=== PATIENT | male | born 1960 | race Caucasian/White ===

== ENCOUNTER 2021-09-23 00:34 | Emergency (ER) | payer OTHER, SELFPAY ==
--- NOTE | ~2021-09-23 | CT_ITS ---
EXAMINATION: CT abdomen pelvis wo con DATE: 09/23/2021 01:53 INDICATION: Right flank pain. TECHNIQUE: Computed tomography (CT) of the abdomen and pelvis was performed without intravenous contr ast. Automated exposure control and iterative reconstruction technique were employed. The dose-length product was 856.26 mGy-cm. COMPARISON: CT abdomen 12/15/2010 FINDINGS: The visualized portions of the lung bases demonstrate mild atelectasis. No pleural effusion . The heart size is normal. No pericardial effusion. The liver, gallbladder, spleen, pancreas, adrena l glands, and left kidney are normal. There is mild right hydronephrosis and hydroureter. There is a 4 mm stone in distal right ureter. There is a left inguinal hernia containing fat. There are no dilat ed loops of bowel. There are changes of appendectomy. There is diverticulosis of the colon without ev idence of diverticulitis. There are no pathologically enlarged lymph nodes. There is no free intraper itoneal fluid. There is mild thoracolumbar spondylosis. IMPRESSION: 1. 4 mm stone in distal right ureter with mild right hydronephrosis and hydroureter. 2. Left inguinal hernia containing fat. Reviewed, dictated and finalized at location A. IMPRESSION: 1. 4 mm stone in distal right ureter with mild right hydronephrosis and hydrour eter. 2. Left inguinal hernia containing fat.
[2021-09-23 00:35] VITALS: BP 161/85; PULSE 53; RESP 17; TEMP 36.8; O2SAT 97
--- NOTE | 2021-09-23 01:18 | ED.ABDPAIN ---
HPI - Abdominal Pain General Chief Complaint: Abdominal Pain Stated Complaint: right side pain Time Seen by Provider: 09/23/21 01:09 History of Present Illness HPI narrative: 61-year-old male presenting the emergency department for evaluation of right flank pain. Patient states about a week and a half ago he had 1 hour of brief pain that resolved. Patient dates about 3 days ago he had recurrence of the pain and it lasted a little longer. Patient states tonight he has had persistent right flank pain since about 9:30 PM. Patient does report associated nausea with it patient states he does also have increased urinary urgency. Patient denies any prior history of kidney stones. Patient describes the pain as sharp and is not affected by movement. Related Data Home Medications Medication Instructions Recorded Confirmed hydrochlorothiazide 12.5 mg tablet mg 09/23/21 levothyroxine 75 mcg tablet mcg 09/23/21 metoprolol succinate 100 mg mg PO 09/23/21 tablet,extended release 24 hr rosuvastatin 20 mg tablet mg 09/23/21 Allergies Allergy/AdvReac Type Severity Reaction Status Date / Time No Known Allergies Allergy Mild Verified 09/23/21 00:39 Review of Systems Review of Systems: CONSTITUTIONAL: Denies fever, chills, or sweats. EYES: Denies visual changes, redness, or discharge. ENT: Denies rhinorrhea, congestion, sore throat, or otalgia. CARDIOVASCULAR: Denies chest pain, palpitations, or edema. RESPIRATORY: Denies cough or dyspnea. GASTROINTESTINAL: Denies abdominal pain, nausea, vomiting, or diarrhea. GENITOURINARY: See HPI SKIN: Denies rash or itching. MUSCULOSKELETAL: Denies back pain, joint pain, or myalgia. NEUROLOGIC: Denies headache, numbness, or weakness. [facility] Family History Family History (Updated 11/09/11 @ 08:43 by DOCTOR UNKNOWN) Other Family history of lung cancer Family history of malignant neoplasm Social History Social History Smoking status: Never smoker Alcohol intake: never Exam Narrative: APPEARANCE: Well appearing, no pain, no distress, well-nourished. HEAD: normocephalic, atraumatic. EYES: PERRLA/EOMI, conjunctivae clear. NOSE: Normal no drainage NECK: Supple. No adenopathy, no masses. RESPIRATORY: Airway patent, respirations nonlabored. Clear to auscultation bilaterally, no rales, rhonchi, wheezing. CARDIOVASCULAR: Regular rate and rhythm without murmurs rubs or gallops. ABDOMINAL: Soft, nontender, nondistended, normal bowel sounds MUSCULOSKELETAL: Moves all extremities. Strength/ROM intact, No edema, No calf tenderness. NEURO: Alert. Cranial nerves II through XII intact. SKIN: Warm, dry. Normal Color Course Course Emergency Course: Patient's pain was improved with treatment. Patient was updated on the results of his CT showing a 5 mm distal right ureteral stone located at the UVJ with proximal right hydronephrosis. Patient's UA does not show evidence of urinary tract infection. Patient will be discharged with Seeley and Flomax with Zofran for nausea control. Patient will be provided follow-up with urology. All questions concerns were addressed. Patient was comfortable with the plan with discharge and follow-up. Vital Signs Vital signs: Vital Signs Temperature 98.3 F 09/23/21 00:35 Pulse Rate 53 L 09/23/21 00:35 Respiratory Rate 17 09/23/21 00:35 Blood Pressure 161/85 H 09/23/21 00:35 Pulse Oximetry 97 09/23/21 00:35 Oxygen Delivery Room Air 09/23/21 00:35 Temperature 98.3 F 09/23/21 00:35 Pulse Rate 53 L 09/23/21 00:35 Respiratory Rate 17 09/23/21 00:35 Blood Pressure 125/77 09/23/21 04:02 Pulse Oximetry 96 09/23/21 04:02 Oxygen Delivery Room Air 09/23/21 00:35 MDM - Abdominal Pain Lab Data Attestation: I reviewed the patient's lab results. Result diagrams: 09/23/21 01:39 09/23/21 02:02 Labs: Lab Results 09/23/21 09/23/21 09/23/21 Range/Units 01:39 02:02 02:26 WBC 5.7
[2021-09-23] MEDS: HYDROmorphone HCL INJ (*CRX) 1 MG/ML SYR IV PUSH (01:27)
[2021-09-23] MEDS: ONDANSETRON INJ 4 MG/2 ML VIAL IV PUSH (01:28)
[2021-09-23] MEDS: SODIUM CHLORIDE 0.9% IV 1,000 ML 999 ML IV CONT (01:37)
[2021-09-23 01:45] LABS: Basophils Percent Auto 0.7 % (0.2-1.2); Eosinophils Absolute Auto 0.1 K/mm3 (0-0.3); Eosinophils Percent Auto 1.6 % (0-4.4); Hematocrit 41.7 % (42.0-52.0); Hemoglobin 14.3 g/dL (14.0-18.0); Immature Granulocyte Absolute 0.02 K/mm3 (0.00-0.031); Immature Granulocyte Percent A 0.4 % (0-0.5); Lymphocytes Absolute Auto 1.41 K/mm3 (0.9-3.2); Lymphocytes Percent Auto 24.8 % (18.3-44.2); Mean Corpuscular HGB Conc 34.3 g/dl (32-36); Mean Corpuscular Hemoglobin 31.2 pg (26-34); Mean Platelet Volume 9.5 fl (7.4-10.4); Monocytes Absolute Auto 0.9 K/mm3 (0.1-0.6); Neutrophils Absolute Auto 3.3 K/mm3 (1.3-6.7); Neutrophils Percent Auto 57.5 % (45.5-73.1); Platelet Count Result 146 k/mm3 (150-375); Red Blood Count 4.58 M/mm3 (4.6-6.20); Red Cell Distribution Width 12.6 % (11.5-14.5); White Blood Count 5.7 K/mm3 (4.5-10.0)
[2021-09-23 02:33] LABS: Add Urine Microscopic? YES; Appearance Urine Clear (Clear); Bilirubin Urine Negative (Negative); Blood Urine 2+ (Negative); Color Urine Yellow (Yellow); Glucose Urine UA Negative (Negative); Ketones Urine Negative (Negative); Leukocyte Esterase Ur Negative LEU/UL (Negative); Nitrate Urine Negative (Negative); Protein Urine Negative (Negative); Urobilinogen Urine 0.2 mg/dL (<2.0)
[2021-09-23 02:36] LABS: Mucus Urine Rare /lpf; RBC Urine 21-50 /hpf (0-2); Squamous Epithelial Cell Urine Rare /hpf (Few); WBC Urine 0-3 /hpf
[2021-09-23 02:42] LABS: Alanine Aminotransferase 18 U/L (6-50); Albumin Level 3.9 g/dL (3.5-5.1); Alkaline Phosphatase 76 U/L (38-126); Anion Gap 7 mmol/L (8-16); Aspartate Amino Transferase 38 U/L (17-59); Bilirubin,Total 0.3 mg/dL (0.2-1.3); Blood Urea Nitrogen 25 mg/dL (9-20); Carbon Dioxide 28 mmol/L (22-30); Chloride 103 mmol/L (98-107); Estimated CRCL calculation 62 ml/min; Estimated Glomerular Filt Rate 57; Glucose 103 mg/dL (65-110); Sodium 138 mmol/L (137-145)
[2021-09-23 03:54] VITALS: O2SAT 96
[2021-09-23 04:00] VITALS: O2SAT 97
[2021-09-23 04:02] VITALS: BP 125/77; O2SAT 96
[2021-09-23] MEDS: HYDROcodone/acetaminophen (*CRX) 5-325 MG TABLET 1 TAB PO (05:24)
[2021-09-23] MEDS: TAMSULOSIN HCL 0.4 MG CAPSULE PO (05:25)
[2021-09-23 05:34] VITALS: BP 120/74; PULSE 52; RESP 18; O2SAT 98
== END 2021-09-23 05:35 | disposition home or self-care (01) ==
PROVIDERS: Emergency Provider Emergency Medicine; PCP Internal Medicine
DX: N13.2 Hydronephrosis with renal and ureteral calculous obstruction (principal)
CPT/HCPCS: 36415; 74176; 80053; 81001; 85025; 96361; 96374; 96375; 99284; A9270; J1170; J2405; J7030

== ENCOUNTER 2024-01-04 23:49 | Emergency (ER) | payer OTHER, SELFPAY ==
--- NOTE | 2024-01-05 00:09 | ED.EAR ---
HPI - Ear Problem General Chief complaint: Ear Stated complaint: right ear bleeding for 6-7 hours, hearing loss Time Seen by Provider: 01/04/24 23:57 History of Present Illness HPI Narrative: 63-year-old male presents emergency department for right ear pain and hearing loss. Patient states earlier this morning he used a Q-tip in his ear and is concerned he injured his ear. States since then he has had decreased hearing and blood trickling out of his ear. He is not anticoagulated. Denies significant pain or fever. Related Data Home Medications Medication Instructions Recorded Confirmed hydrochlorothiazide 12.5 mg tablet mg 09/23/21 levothyroxine 75 mcg tablet mcg 09/23/21 metoprolol succinate 100 mg mg PO 09/23/21 tablet,extended release 24 hr rosuvastatin 20 mg tablet mg 09/23/21 Allergies Allergy/AdvReac Type Severity Reaction Status Date / Time No Known Allergies Allergy Mild Verified 01/05/24 00:14 Review of Systems Review of Systems: All systems reviewed & are unremarkable except as noted in HPI and below PMFSH Family History Family History Other Family history of lung cancer Family history of malignant neoplasm Social History Social History Smoking status: Never smoker Alcohol intake: never Exam Narrative: GENERAL: Well-appearing, well-nourished, and in no acute distress. HEAD: Normocephalic, atraumatic. EYES: PERRLA and EOMI. ENT: Nares clear, no rhinorrhea or epistaxis. Mucous membranes moist. Right TM perforated with small amount of blood in the canal. No purulence, no erythema to TM, no bulging. No pain with movement of pinna. No mastoid tenderness. NECK: Supple. CHEST: Clear to auscultation. No respiratory distress. HEART: Regular rate and rhythm. No murmur heard. Normal peripheral pulses. EXTREMITIES: Normal range of motion. No edema. SKIN: Warm, dry, no rash. NEURO: No focal deficits. Alert and oriented x3 Medical Decision Making MDM Narrative Medical decision making narrative: 63-year-old male presents emergency department for decreased hearing and pain to the right ear after using a Q-tip earlier this morning. Vitals are stable. Exam is significant for perforated right TM mild amount of blood in the canal. No pain with movement pinna. No mastoid tenderness. No purulence. Patient will be started on ofloxacin otic drops and advised to follow-up with ENT. Strict ED return precautions discussed. He is agreeable to plan verbalized understanding. Discharged in stable condition. Discharge Plan Discharge Clinical Impression: Perforation of tympanic membrane Qualifiers: Laterality: right Qualified Code(s): H72.91 - Unspecified perforation of tympanic membrane, right ear Patient Disposition: Home, Self-Care Condition: Stable Instructions: Antibiotic Form, Ruptured Eardrum (ED) Additional Instructions: You were evaluated in the emergency department for decreased hearing and pain to your ear after using a Q-tip. There is blood in her ear canal and it looks like your ear drum has been perforated from the Q-tip. Please refrain from sticking objects in her ears. Please use the drops as directed follow-up with ENT. Return to the emergency department if you develop worsening pain, fever, increased or prolonged bleeding or other concerning symptoms. Prescriptions: New ofloxacin 0.3 % drops 10 drp RIGHT EAR DAILY 7 Days Qty: 5 0RF No Action metoprolol succinate 100 mg tablet extended release 24 hr PO levothyroxine 75 mcg tablet rosuvastatin 20 mg tablet hydrochlorothiazide 12.5 mg tablet tamsulosin [Flomax] 0.4 mg capsule 0.4 mg PO DAILY Qty: 10 0RF hydrocodone-acetaminophen 5-325 mg tablet 1 tablet PO Q8H PRN (Reason: pain) Qty: 14 0RF ondansetron 4 mg tablet,disintegrating 4 mg PO Q6H PRN (Reason: nausea and vomiting) Qty: 14 0RF Follow-up/Referrals: Michael Muniz MD [Physician] - 1 Day UNKNOWN,DOCTOR [Primary Care Provider] -
[2024-01-05 00:11] VITALS: BP 144/93; PULSE 52; RESP 15; TEMP 36.6; O2SAT 98
== END 2024-01-05 00:28 | disposition home or self-care (01) ==
LOC: ANHED 01-05 00:22
PROVIDERS: Emergency Provider Physician Assistant
DX: H72.91 Unspecified perforation of tympanic membrane, right ear (principal)
CPT/HCPCS: 99283

== ENCOUNTER 2024-07-17 13:59 | Outpatient (CLI) | payer OTHER, SELFPAY ==
--- NOTE | 2024-07-17 | ECHO_ITS ---
Patient Info Name: Jose Pryor Age: 64 years : 1960 Gender: Male Ht: 69 in Wt: 225 lbs BSA: 2.26 m2 HR: 52 bpm BP: 167 / 108 mmHg Heart Rhythm: Sinus Rhythm Technical Quality: Fair Exam Date: 07/17/2024 3:04 PM Patient Status: O Admit Date: 07/17/2024 Exam Type: CA echo doppler color flow Complete two-dimensional, color flow and Doppler transthoracic echocardiogram is performed. [employer] Well[employer] Director: Tori Dotson Attending Provider: Kurtis Grajeda Summary 1. Complete two-dimensional, color flow and Doppler transthoracic echocardiogram is performed. 2. Left ventricular chamber dimension is normal. 3. Left ventricular systolic function is normal, estimated at 65-70. 4. The left ventricular diastolic function is grade I diastolic dysfunction. 5. E/e' 8 is minimally elevated. 6. Left atrial chamber dimension is moderately enlarged. 7. No pulmonary hypertension, estimated pulmonary arterial systolic pressure is 18 mmHg. Left Ventricle E/e' 8 is minimally elevated. Left ventricular chamber dimension is normal. Left ventricular systolic function is normal, estimated at 65-70. The left ventricular diastolic function is grade I diastolic dysfunction. Right Ventricle Right ventricular chamber dimension is normal. Right ventricular systolic function is normal and with normal TAPSE 2.6 cm. Left Atria Left atrial chamber dimension is moderately enlarged. Right Atria Right atrial chamber dimension is normal. Aortic Valve The aortic valve is trileaflet. There is no aortic valve stenosis. There is no aortic valve regurgitation. Pulmonic Valve There is no pulmonic regurgitation. Mitral Valve There is no mitral valve stenosis. There is no mitral valve regurgitation. Tricuspid Valve There is no tricuspid valve regurgitation. No pulmonary hypertension, estimated pulmonary arterial systolic pressure is 18 mmHg. Pericardium/Pleural There is no pericardial effusion. Inferior Vena Cava Normal inferior vena cava with >50% collapse upon inspiration consistent with normal right atrial pressure, 5 mmHg. Aorta The aortic root size at the sinus of Valsalva is normal. Left Ventricular Outflow Tract Name Value Normal LVOT 2D LVOT Diameter 2.0 cm LVOT Doppler LVOT Peak Velocity 118 cm/s LVOT Peak Gradient 6 mmHg LVOT Mean Gradient 3 mmHg LVOT VTI 26 cm LVOT VTI/AV VTI Ratio 0.8 LVOT Stroke Volume 85 ml LVOT CO 4.1 l/min LVOT CI 1.8 l/min/m2 Pulmonic Valve Name Value Normal RVOT Doppler RVOT Peak Velocity 63 cm/s RVOT Peak Gradient 2 mmHg PV Doppler PV Peak Velocity 162 cm/s PV Peak Gradient 10 mmHg Mitral Valve Name Value Normal MV Diastolic Function MV E Peak Velocity 55 cm/s MV A Peak Velocity 61 cm/s MV E/A 0.9 MV Decel Time (PW) 216 ms MV Annular TDI MV E/e' (Septal) 10.2 MV E/e' (Lateral) 7.0 MV E/e' (Average) 8.6 Tricuspid Valve Name Value Normal TV Regurgitation Doppler TR Peak Velocity 177 cm/s TR Peak Gradient 13 mmHg Estimated PAP/RSVP RA Pressure 5 mmHg <=5 PA Systolic Pressure 18 mmHg <36 RV Systolic Pressure 18 mmHg <36 TV Annular TDI TV Lateral Nikki s' Velocity 14.2 cm/s >=9.5 Aorta Name Value Normal Ascending Aorta Ao Root Diameter (MM) 3.6 cm Ao Root Diam Index (MM) 1.6 cm/m2 Aortic Valve Name Value Normal AV Doppler AV Peak Velocity 153 cm/s AV Peak Gradient 9 mmHg AV Mean Gradient 5 mmHg AV VTI 33 cm AV Area (Cont Eq VTI) 2.6 cm2 >=3.0 AV Area (Cont Eq Jay) 2.5 cm2 AV DI (Jay) 0.77 AV Regurgitation 2D LVOT Area 3.3 cm2 Ventricles Name Value Normal LV Dimensions 2D/MM IVS Diastolic Thickness (2D) 1.6 cm 0.6-1.0 LVID Diastole (2D) 4.5 cm 4.2-5.8 LVIW Diastolic Thickness (2D) 1.3 cm 0.6-1.0 LVID Systole (2D) 3.0 cm 2.5-4.0 LVOT Diameter 2.0 cm LV Mass (2D Cubed) 264.12 g 88.00-224.00 LV Mass Index (2D Cubed) 117 g/m2 49-115 Relative Wall Thickness (2D) 0.60 <=0.42 LV Fractional Shortening/Ejection Fraction 2D/MM LV Fractional Shortening (2D) 33 % 25-43 LV EF (2D Teichholz) 62 % LV Diastolic Volume (4C MOD) 74 ml LV EF (4C MOD) 72 % LV Diastolic Volume (2C MOD) 65 ml LV EF (2C MOD) 71 % LV Diastolic Volume (BP MOD) 68 ml 62-150 LV Diastolic Volume Index (BP MOD) 30 ml/m2 34-74 LV Systolic Volume (BP MOD) 20 ml 21-61 LV Systolic Volume Index (BP MOD) 9 ml/m2 11-31 LV EF (BP MOD) 70 % 52-72 LV Diastolic Length (4C) 8.3 cm LV Systolic Length (4C) 7.3 cm LV Stroke Volume (4C MOD) 53 ml Atria Name Value Normal LA Dimensions LA Dimension (MM) 5.0 cm 3.0-4.0 LA Volume (4C A-L) 89 ml LA Volume (BP A-L) 89 ml RA Dimensions RA Systolic Major [place] Length (4C) 4.7 cm 2.1-2.7 RA Area (4C) 14.3 cm2 <=18.0 Report Signatures
--- OUTSIDE RECORDS SUMMARY | 2024-07-17 14:21 | XMS_ITS | Continuity of Care Document ---
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 Name Role Phone Fabricio Galindo MD Unavailable Unavailable Allergies, Adverse Reactions, Alerts Substance Reaction Status Criticality No Known Allergies Active No Inform ation Medications Medication Instructions Dosage Effective Dates (start - stop) Status Comments Synthroid 75 mcg tablet take 1 tablet by oral route every day 75 MCG - Active hydrochlorothiazide 12.5 mg tablet take 1 tablet by oral route every day 12.5 MG - Active Crestor 20 mg tablet take 1 tablet by oral route every day 20 MG - Active Toprol XL 100 mg tablet,extended release take 1 tablet by oral route every day 100 MG - Active Procedures Procedure Date OFFICE/OUTPATIENT VISIT, EST OFFICE/OUTPATIENT VISIT, EST PREV VISIT, EST, AGE 40-64 OFFICE/OUTPATIENT VISIT, EST PREV VISIT, NEW, AGE 40-64 Advance Directives Directive Yes / No Effective Date File Name No Information Encounters Encounter Description Practice Location Reason(s) For Visit Diagnoses Date Provider Providers Copied on Encounter OFFICE/OUTPA TIENT VISIT, EST [facility], [address] [place], [place], [id number], tel:[phone] [facility] leg pain1 (chief complaint) Nontraumatic hematoma of soft tissueHypothyroidis m Sep-2 9 Mate[address]. [address] [place], [place], [id number] , [place]. tel:[phone] Referring Provider: Avis Aguero [address], [place], [place], [id number]. tel:[phone] OFFICE/OUTPA TIENT VISIT, EST [facility], [address], [place], [place], [address], [place] [phone] [facility] HLP (chief complaint) thyroid1 (chief complaint) HTN (chief complaint) BPH1 (chief complaint) HyperlipidemiaHypot hyroidismEssential (primary) hypertensionBPH w/ lower urinary tract symptom 9 Mate[address] Reg[address]. [address], [address], [place], [place], [address] , [place]. tel:[phone] Referring Provider: Avis Aguero [address], [place], [place], [id number]. tel:[phone] PREV VISIT, EST, AGE 40-64 [facility], [address], [place], [place], [address], [place] [phone] [facility] PHysical (chief complaint) Encounter for general adult medical exam w abnormal findingsHyperlipide miaHypothyroidismEs sential (primary) hypertensionBPH w/ lower urinary tract symptom 9 Mate[address] Regalado. [address], [address], [place], [place], [address] , [place]. tel:[phone] Referring Provider: Avis Aguero [address], [place], [place], [address]. tel:[phone] PREV VISIT, NEW, AGE 40-64 [facility], [address], [place], [place], [address], [place] [phone] [facility] Physical (chief complaint) Encntr for general adult medical exam w/o abnormal findings 8 Mate[address] Regalado. [address], [place], [place], [address] , [place]. [phone] Referring Provider: Avis Aguero [address], [place], [place], [address]. tel:[phone] Family History Family Member Type Diagnosis Age At Onset Father Problem (finding) Hypertension Father Problem (finding) Alive and well Mother Problem (finding) lung CA (Cause Of ) 73 Payers Payer name Insurance type Covered constitution party ID Authoriza tion(s) No Information Social History Type Description Quantity Date Captured Comments Alcohol Use Details Caffeine Use Details Unknown Tobacco Use Status Ex-cigarette smoker 019 Smoking Status Former smoker Smoking Tobacco Use Details Cigarette: Age Started: 24, Age Stopped: 27, Years Used 3 Cigarette: 1 Packs per day, Pack Year: 3 Sex Male Vital Signs Date / Time: Height Weight BMI Pulse Rate Blood Pressure Temperature Respiratory Rate Body Surface Area Head Circumference BMI percentile Pulse Ox Inhaled Ox 5:51 PM 69.00 in 220.20 lbs 32.5 2 kg/m eter (2) 80 /min 122/78 mm[Hg] 98.5 F 18 /min Chief Complaint And Reason For Visit From encounter dated '11/07/2018 17:00'. leg pain1 (chief complaint). Description: Pt was renovating his deck and part of deck fell on his right lateral inferior knee and scratched the anterior part of his right lower leg 2 days ago. Pt notices bruising right anterior lateral lower extremity with mild swelling. Pt denies any redness or warmth Pt denies any calf pain, pt denies any sob or chest pain, Pt denies any recent travel or bedrest. Pt is concerned about DVT. Pt denies any bleeding. His last Tdap was over 10 years ago Plan Of Treatment Date Type Action Status Goal Tobacco cessation counseling completed Goal Special diet education compl eted Goal Special diet education compl eted Goal Special diet education compl eted Goal Tobacco cessation counseling completed Goal Special diet education compl eted Referral Ordered: US THYROID ordered Referral Ordered: SHANNON MYLES -[facility] : Surgery (related to Encntr for general adult medical exam w/o abnormal findings) ordered Referral Ordered: COLONOSCOPY AND BIOPSY ordered Referral Referred To: SHANNON MYLES [address] [place], [place], [phone] Ordered: Referrals: [facility] : Surgery. SHANNON MYLES. Evaluate and treat ordered History Of Present Illness Encounter Date Complaint History Of Prese nt Illness leg pain1 Pt was renovatin g his deck and part of deck fell on his right lateral inferior knee and scratched the anterior part of his right lower leg 2 days ago. Pt notices bruising right anterior lateral lower extremity with mild swelling. Pt denies any redness or warmth Pt denies any calf pain, pt denies any sob or chest pain, Pt denies any recent travel or bedrest. Pt is concerned about DVT. Pt denies any bleeding. His last Tdap was over 10 years ago BPH1 Patient has sign s of BPH. Patient has intermittent urinary deep difficulty. Patient denies any urgency or dysuria. The patient has not made appointment with urology yet. HTN Patient takes To prol and hydrochlorothiazide. His blood pressure is stable. Patient denies any chest pain or headache. thyroid1 Patient takes 75 mcg Synthroid. Patient denies any chest pain or headache. His TSH is slightly elevated. HLP Patient has hype rlipidemia. Patient supposed to take Crestor daily but he has not been taking them daily. Patient has been out of Crestor for a while. His total cholesterol and triglyceride are both elevated. PHysical Patient needs an nual physical. Patient has high cholesterol and high triglyceride. Patient take Zocor daily. His total cholesterol and triglycerides are both high. Patient is not on any diet. Patient has low thyroid. The patient has mildly elevated thyroglobulin and also low thyroid. Patient states that he is only taking 56 mcg of Synthroid instead of 112 mcg. Patient breaks 112 mcg to half and takes only 56 mcg daily. Patient states that he has history of over replaced thyroid which caused him to have palpitations. Patient is afraid of the thyroid so that is why he is only taking half of the dosage. Patient does feel fatigued with some weight gain. Patient also has hypertension. Patient takes hydrochlorothiazide and Toprol and his blood pressure stable. Patient denies any other complaints. Physical Pt needs annual physical. Pt has HLP and HTn Pt takes zocor and metoprolol. He also has low thyroid. Pt takes synthroid but not sure the dosage Pt denies any chest pain or sob or headache Pt has been having issue with intercourse. Pt has been having issue for 6 months Pt states that whenever he engaged in intercourse, the foreskin and daniel penis becomes irritated near the junction point and causes pain and sometimes bleeding. . He also has some dribbling when he finished urination for 6 months Pt denies any dysuria, frequency, urgency, difficulty with urination, slow stream, etc. Pt denies any other complaints Instructions Date Instruction Additional Infor mation Special diet education Related t o Body mass index (BMI) 32.0-32.9, adult Weight management Related to Non traumatic hematoma of soft tissue Weight management Related to Hyp othyroidism Special diet education Related t o Body mass index (BMI) 32.0-32.9, adult Increase physical activity Relat ed to Hypothyroidism Special diet education Related t o Body mass index (BMI) 32.0-32.9, adult Special diet education Related t o Body mass index (BMI) 31.0-31.9, adult Increase activity. Related to En cntr for general adult medical exam w/o abnormal findings Assessments Type Assessment Date assessment Nontraumatic hematoma of soft ti ssue assessment Hypothyroidism Mental Status Date Cognitive Assessment Orientation - [place] ed to time, place, person, situation.
--- OUTSIDE RECORDS SUMMARY | 2024-07-17 14:21 | XMS_ITS | Data Portability ---
[facility] Address [address] [place] [address] Care Team Providers Care Storage Battery Tester Name Role Phone DEONNA GRAJEDA Primary Care Provider Assessment Encounter Date Assessment Date Assessment LastModified by Organization Details LastModified Time 11/01/2023 11/01/2023 he does not want to adjust medicines he has agreed to come in in a week or 2 to get his blood pressure checked blood work has been ordered old records have been requested he really does not want to do any medication for anxiety and depression he has been offered counseling and he wants to hold off on that no SI or HI number given for counselor referral I will see him back in 3 months [email or web address] Not available 11/01/2023 22:39:11 01/07/2024 01/07/2024 needs to see ENT [email or web address] Not available 01/23/2024 21:09:39 06/15/2024 06/15/2024 EKG shows a normal sinus rhythm I do not appreciate any acute changes maybe some T-wave flattening in lead 3. Chest x-ray CBC CMP lipid complete echo Lexiscan stress test PFTs he will follow up 6 weeks if he gets serious dyspnea on exertion that is worsening he will go to the hospital [email or web address] Not available 06/16/2024 20:19:24 Plan of Treatment Reminders Order Date Submit Date Provider Last Modified By Organization Details Last Modified Time Details Appointments ANY 15 2024 09:15A M Deonna Grajeda MD Not available Not available Not available Lab lipid panel, serum 2024 0501 025 [facility], [address], [place], [address], 06/30/2024 11:02:22 CMP, serum or plasma 2024 025 [facility], [address], [place], [address], 06/30/2024 11:02:22 CBC w/ auto diff 2024 025 [facility], [address], [place], [address], 06/30/2024 11:02:22 PSA, total, serum or plasma 2023 024 [email or web address] [facility], [address] [address], [place], [address], 12/15/2023 15:56:21 lipid panel, serum 2023 024 KATERINA [facility], [address] [address], [place], [address], 11/05/2023 09:21:08 CMP, serum or plasma 2023 024 [email or web address] [facility], [address] [address], [place], [address], 12/15/2023 15:56:21 CBC w/ auto diff 2023 024 [email or web address] [facility], [address] [address], [place], [address], 12/15/2023 15:56:21 Referral ENT surgery referral - 01/17/24 at 1030am at [address] pt aware 2023 024 [facility], [address], [place], [address], 03/07/2024 16:03:34 Procedures lexiscan cardiolit e stress test (PROC) [address] (Cardiology [facility] Emg), [address] [address], [place], [address], 07/17/2024 14:18:52 Surgeries None recorded. Imaging electroca rdiogram 2024 025 [email or web address] In-Office Order, Internal Use Only DO Not Attach Compendium DO Not Attach Compendium, Do Not Delete/merge, [id number] 06/15/2024 17:37:53 XR, chest 2024 025 [facility] (Imaging), [address] [place] [address], [phone], 07/14/2024 11:24:09 PFT, complete 2024 [facility] (Resp Services), [address] [place] [address], [phone], 07/14/2024 11:24:09 US, echocardi ogram 2024 025 [facility] (Cardiology [facility]), [address] [place] [address], [phone], 07/14/2024 11:24:09 Medication Orders None recorded. Patient TargetsNo targets recorded. Patient Instructions Encounter Date Encounter Id Patient Instructions Last Modified By Organization Details Last Modified Time 11/01/2023 [id number] A healthy lifestyle: care instructions [email or web address] Not available 11/01/2023 17:23:48 01/07/2024 [id number] A healthy lifestyle: care instructions [email or web address] Not available 01/07/2024 12:52:24 06/15/2024 [id number] A healthy lifestyle: care instructions [email or web address] Not available 06/15/2024 17:37:53 Reason for Referral ENT Surgery Referral for Per foration of right tympanic membrane 01/17/24 at 1030am at [address] pt aware Referring Physician: Deonna Grajeda, Internal Medicine, Encounter Date: 01/07/2024 Results Created Date Observation Date Name Description Value Unit Range Abnormal Flag Note LastModifiedBy Organization Detail LastModifiedTime 01/16/20 24 01/16/2024 SARS- CoV+S ARS-C oV-2 (COVI D-19) Ag [Pres ence] in Respi rator y syste m speci men by Rapid immun oassa y influenza A Ag, POC Negati ve text: negati ve Influ fahad A Ag, POC Negat vanessa Negat vanessa [facility] Not Available Not Available 04/07/2024 11:12:30 01/16/20 24 01/16/2024 SARS- CoV+S ARS-C oV-2 (COVI D-19) Ag [Pres ence] in Respi rator y syste m speci men by Rapid immun oassa y influenza B Ag, POC Negati ve text: negati ve Influ fahad B Ag, POC Negat vanessa Negat vanessa [facility] Not Available Not Available 04/07/2024 11:12:30 01/16/20 24 01/16/2024 SARS- CoV+S ARS-C oV-2 (COVI D-19) Ag [Pres ence] in Respi rator y syste m speci men by Rapid immun oassa y covid-19 Ag POC Presum ptive Negati ve text: presum ptive negati ve, invali d COVID -19 Ag POC Presu mptiv e Negat vanessa Presu mptiv e Negat vanessa, Inval id [facility] Not Available Not Available 04/07/2024 11:12:30 06/16/19 [facility] No observ ation record ed. KATERINA In-Office Order Internal Use Only DO Not Attach Compendium DO Not Attach Compendium, Do Not Delete/merge, [id number] 06/15/2024 16:59:30 06/16/19 25 06/15/2024 [facility] diogr am No observ ation record ed. BARCODE In-Office Order Internal Use Only DO Not Attach Compendium DO Not Attach Compendium, Do Not Delete/merge, [id number] 06/15/2024 17:13:24 Result Notes None recorded. Problems Name Problem SNOMED Code Status Onset Date Resolution Date Notes Provider Name and Address Organization Details Recorded Time Perforation of right tympanic membrane 4704021423208 108 Active 2023 Elijah Reyes MA farzad, [place] - [facility] 4 11:11:33 Essential hypertensio n 78665268 Active 2023 Elijah Reyes MA farzad, [facility] 4 11:12:06 Hyperlipide lake 25201893 Active 2023 Elijah Reyes MA farzad, [facility] 4 11:12:11 Hypothyroid ism 98564506 Active 2023 Elijah Reyes MA farzad, [facility] 4 11:12:30 Dyspnea on exertion 67974972 Active 2024 Elijah Reyes MA farzad, [facility] 5 17:11:58 Problem Notes None recorded. Procedures Surgical History Date Name Laterality Status Provider Name and Address Organization Details Recorded Time 02/15/19 00 Arthroscopic Surgery completed Nimco Bethea MA [facility] 11/01/2023 14:44:20 02/15/18 68 hernia repair completed Nimco Bethea MA [facility] 11/01/2023 14:44:03 Imaging Results None recorded. Procedure Notes None recorded. Medical Equipment None Reported. Allergies No known drug allergies Medications Name Sig Start Date Stop Date Status Note LastModified by Organization Details LastModified Time methocarbam ol 500 mg tablet TAKE 1 TABLET BY MOUTH TWICE DAILY active Not Available Not Available No t Available prednisone 20 mg tablet TAKE 1 TABLET BY MOUTH TWICE DAILY FOR 5 DAYS 10/31 completed Not Available Not Available Not Available metoprolol succinate ER 100 mg tablet,exte nded release 24 hr Take 1 tablet by mouth once daily 2024 active Not Available Not Available Not Avai lable Space Chamber USE DIRECTED WITH ALBUTEROL INHALER active Not Available Not Available No t Available levothyroxi ne 88 mcg tablet take 1 tablet by mouth once daily 2024 active Not Available Not Available Not Avai lable oseltamivir 75 mg capsule TAKE 1 CAPSULE BY MOUTH EVERY 12 HOURS FOR 5 DAYS 10/31 completed Not Available Not Available Not Available diclofenac sodium 75 mg tablet,dimas yed release TAKE 1 TABLET BY MOUTH TWICE DAILY active Not Available Not Available No t Available methylpredn isolone 4 mg tablets in a dose pack TAKE DIRECTED ON PACKAGE 01/06 completed Not Available Not Available Not Available albuterol sulfate HFA 90 mcg/actuati on aerosol inhaler INHALE 2 PUFFS BY MOUTH EVERY 4 HOURS NEEDED FOR SHORTNESS OF BREATH OR WHEEZE active Not Available Not Available No t Available naproxen 500 mg tablet TAKE 1 TABLET BY MOUTH TWICE DAILY WITH MEALS active Not Available Not Available No t Available amoxicillin 875 mg-potassiu m clavulanate 125 mg tablet TAKE 1 TABLET BY MOUTH TWICE DAILY FOR 7 DAYS 10/31 completed Not Available Not Available Not Available rosuvastati n 20 mg tablet Take 1 tablet every day by oral route. 2024 active Not Available Not Available Not Avai lable hydrochloro thiazide 12.5 mg tablet Take 1 tablet every day by oral route. 2024 active Not Available Not Available Not Avai lable Vitals Date Recorded Body height Body mass index (BMI) Body weight Heart rate Oxygen saturation Oxygen saturation in Arterial blood by Pulse oximetry Systolic blood pressure Diastolic blood pressure Provider Name and Address Organization Details Last Updated DateTime 5 175.26 cm 33.6 kg/m2 422411. 98 g 65 /min 96 % 96 % 134 mm[Hg] 70 mm[Hg] Shelbi Zuluaga MA [facility] 5 16:29:28 Date Recorded Body weight Body mass index (BMI) Body height Heart rate Oxygen saturation Oxygen saturation in Arterial blood by Pulse oximetry Systolic blood pressure Diastolic blood pressure Provider Name and Address Organization Details Last Updated DateTime 4 37539.7 3 g 32.3 kg/m2 175.26 cm 52 /min 95 % 95 % 160 mm[Hg] 90 mm[Hg] Nimco Bethea MA [facility] 4 14:30:21 Date Recorded Body height Body mass index (BMI) Body weight Heart rate Oxygen saturation Oxygen saturation in Arterial blood by Pulse oximetry Systolic blood pressure Diastolic blood pressure Provider Name and Address Organization Details Last Updated DateTime 4 175.26 cm 33.1 kg/m2 743752. 41 g 56 /min 96 % 96 % 124 mm[Hg] 68 mm[Hg] Shelbi Zuluaga MA [facility] 10:16:30 Social History Question Answer Notes LastModified by Organizat ion Details LastModified Time Tobacco Smoking Status Former Smoker ANGIE Saucedo, [facility] 11/01/2023 14:43:12 Do You Have An Advance Directive? No Information not available 01/07/2024 Are You Blind Or Do You Have Difficulty Seeing? No Information not available 11/01/2023 What Is Your Level Of Caffeine Consumption? Occasional Information not available 11/01/2023 In The 14 Days Before Symptom Onset, Have You Had Close Contact With A Laboratory-confir med COVID-19 While That Case Was Ill? No Information not available 11/01/2023 In The 14 Days Before Symptom Onset, Have You Had Close Contact With A Person Who Is Under Investigation For COVID-19 While That Person Was Ill? No Information not available 11/01/2023 Have You Been To An Area Known To Be High Risk For COVID-19? No Information not available 11/01/2023 Are You Deaf Or Do You Have Serious Difficulty Hearing? No Information not available 11/01/2023 What Type Of Diet Are You Following? REGULAR Information not available 11/01/2023 Are There Any Guns Present In Your Home? No Information not available 11/01/2023 What Was The Date Of Your Most Recent Tobacco Screening? 06/15/2024 Information not available 06/15/2024 Do You Use Your Seat Belt Or Car Seat Routinely? Yes Information not available 11/01/2023 Do You Have Smoke And Carbon Monoxide Detectors In Your Home? Yes Information not available 11/01/2023 Do You Use Sunscreen Routinely? Yes Information not available 11/01/2023 Has Tobacco Cessation Counseling Been Provided? No Information not available 01/07/2024 On What Date Was Tobacco Cessation Counseling Provided? 06/15/2024 Information not available 06/15/2024 Sex: Male Functional Status Question Answer Note LastModified by Organizat ion Details LastModified Time Do you use any illicit or recreational drugs? No Information not available 11/01/2023 Do you or have you ever used any other forms of tobacco or nicotine? No Information not available 11/01/2023 What is your level of alcohol consumption? Occasional Information not available 11/01/2023 Are you currently employed? No Information not available 01/07/2024 Are you able to care for yourself? Yes Information n ot available 11/01/2023 What is your exercise level? None Information not available 01/07/2024 Mental Status Question Answer Note LastModified by Organization D etails LastModified Time Do you feel stressed (tense, restless, nervous, or anxious, or unable to sleep at night)? [id number] Information not available 11/01/2023 Family History Relationship Description Onset Age of this Age Resolved Age Notes LastModified by Organization Details LastModified Time Mother History of metastatic cancer [email or web address] Not available 2023 14:42:22 Medical History Condition Response Anxiety Disorder N Atrial Fibrillation N High Blood Pressure Y Acid Reflux (GERD) N Cancer N Allergies N COPD N Blood Clots N Asthma N Anemia N High Cholesterol N Hepatitis N Liver Disease N Heart Attack ([place]) N Headaches N Heart Failure N Immunizations Vaccine Type Date Status Note Provider Nam e and Address Organization Details Recorded Time Influenza, split virus, trivalent, preservative 4 completed Deonna Grajeda MD Attn: [address] [place], [address], [facility] 01/23/2024 21:08:16 Past Encounters Encounter ID Performer Location Encounter Start Date Encounter Closed Date Diagnosis/Indication Diagnosis SNOMED-CT Code Diagnosis ICD10 Code Diagnosis Note [id number] Deonna Grajeda MD [facility] [address] [place] [address] 11/01/2023 14:14:57 11/01/2023 15:39:13 Obesity 568458328 E66.8 Essential hypertension 80058849 I10 Screening for malignant neoplasm of prostate 177551514 Z12.5 Hyperlipidemia 50425404 E78.5 Hypothyroidism 84481119 E03.9 [id number] Deonna Grajeda MD [facility] (Adult Med) [address] [place] [address] 01/07/2024 10:07:20 01/07/2024 11:04:32 Obesity 136736115 E66.9 Administra tion of influenza vaccine 18116740 Z23 Perforatio n of right tympanic membrane 0576474428 508639 H72.91 [id number] Deonna Grajeda MD [facility] [place] Lavelle [facility] [address] [place] [address] 06/15/2024 16:16:54 06/15/2024 17:10:35 Obesity caused by energy imbalance 883886589 E66.811 E66.09 Z68.33 Obese class I 4926992736 74508 E66.811 Palpitations 70994818 R0 0.2 Essential hypertension 39038991 I10 Hyperlipidemia 96093659 E78.5 Hypothyroidism 82847556 E03.9 Dyspnea on exertion 6084 5006 R06.09 Health Concerns Section Related Observation LastModified by Organization Detai ls LastModified Time None Recorded Concern Status LastModified by Organization Details LastModified Time None Recorded Advance Directives Directive N: Payers Encounter Date Sequence Insurance Name Policy Number Policy Gordon Covered Member ID Gordon Member ID Guarantor Name 11/01/2023 1 [employer] [id number] Jose Pryor [id number] Jose Pryor 01/07/2024 1 [employer] [id number] Jose Pryor [id number] Jose Pryor 06/15/2024 1 [employer] [id number] Jose Pryor [id number] 1 [id number] Jose Pryor Notes Date Note Type Note Provider Name and Address Organization Details Recorded Time 11/01/2023 text/html hypertension blo od pressure is high he is under some stress and family hypothyroid no heat or cold intolerance dyslipidemia he is taking rosuvastatin no side effects Deonna Grajeda MD Attn: [employer], [place], [address], [facility] 11/01/2023 22:40:12 01/07/2024 text/html Put a Q-tip in h is ear pain bleeding ER still having some pain hard to hear out of the ear Deonna Grajeda MD Attn: [employer] [facility], [place], [address], [facility] 01/23/2024 21:09:58 06/15/2024 text/html He has had some dyspnea on exertion for a month or so with no clear-cut chest pain. He has not had any PND no orthopnea he has not had any edema. No diaphoretic spells no syncope or presyncope. His blood pressure has been doing fine at home he has not had any heat or cold intolerance he occasionally has had a palpitation or 2. Tries to adhere to a low-fat diet Deonna Grajeda MD Attn: [address] [facility], [place], [address], [facility] 06/16/2024 20:20:03
--- OUTSIDE RECORDS SUMMARY | 2024-07-17 14:21 | XMS_ITS | Data Portability ---
Author Organization [place] [facility] [address], Main Office Address [address] [place] [address] Assessment Encounter Date Assessment Date Assessment LastModified by Organization Details LastModified Time 05/28/2022 05/28/2022 Blood work ordered Continue current therapy Cologuard Follow-up in 4 months [email or web address] Not available 06/07/2022 10:53:42 08/11/2022 08/11/2022 Medrol Dosepak MRI brain x-ray C-spine see me back after test [email or web address] Not available 08/18/2022 15:41:02 Plan of Treatment Reminders Order Date Submit Date Provider Last Modified By Organization Details Last Modified Time Details Appointments None recorded. Lab noninvasive colorectal cancer DNA + occult blood screening, QL, stool 2022 023 [facility] (Cologuard Orders Only), [address], [place], [address], 3 01:17:41 CBC w/ auto diff 2022 023 [email or web address], [address], [place], [address], 3 10:30:25 lipid panel, serum 2022 023 [email or web address], [address], [place], [address], 3 10:30:23 CMP, serum or plasma 2022 023 [email or web address], [address], [place], [address], 3 10:30:24 T4, free, serum 2022 023 [facility], [address], [place], [address], 3 10:30:26 T3, free, serum or plasma 2022 023 [place] [facility], [address], [place], [address], 3 10:30:26 TSH, serum or plasma 2022 023 [email or web address], [address], [place], [address], 3 10:30:27 testosteron e, free + total, serum 2022 023 [email or web address], [address], [place], [address], 3 10:30:28 Referral None recorded. Procedures None recorded. Surgeries None recorded. Imaging XR, cervical spine 2022 023 [email or web address] Not available 3 09:13:25 MRI, brain, w/o contrast - Approved [id number] 08/25/2022-2022 023 [email or web address], [address], [address] [address], [place], [address], 4 11:01:17 Medication Orders Medrol (Gal) 4 mg tablets in a dose pack 2022 023 [email or web address] [facility], [address], [place], [address], 3 13:37:04 levothyroxi ne 88 mcg tablet 2022 023 [facility], [address], [place], [address], 12:33:20 Patient TargetsNo targets recorded. Patient InstructionsNo instructions recorded. Reason for Referral None Reported. Results Created Date Observation Date Name Description Value Unit Range Abnormal Flag Note LastModifiedBy Organization Detail LastModifiedTime 06/23/1906/26/2022 LIPID PANEL , STAND JESUS cholesterol, total 157 mg/dL <200 normal Not Available [facility] [address] [address] [place], [address], 06/26/2022 10:30:23 06/23/1906/26/2022 LIPID PANEL , STAND JESUS HDL cholesterol 44 mg/dL > or = 40 normal Not Available [facility] [address] [address] [place], [address], 06/26/2022 10:30:23 06/23/19 23 06/26/2022 LIPID PANEL , STAND JESUS triglyceride s 171 mg/dL <150 high Not Available [facility] [address] [place], [address], 06/26/2022 10:30:23 06/23/1906/26/2022 LIPID PANEL , STAND JESUS LDL-choleste rol 86 mg/dL _(rito c) normal Refer ence range : <100 Katrina able range <100 mg/dL for prima ry preve ntion ; <70 mg/dL for patie nts with CHD or diabe tic patie nts with > or = 2 CHD risk facto rs. LDL-C is now calcu lated using the Aleksandra n-Hop elina rehmanu johana n, which is a valid ated novel marshall christensen than the Fried casey equat ion in the estim ation of LDL-C . Aleksandra wei SS et al. COOPER. 2013; 310(1 9): 2061- 2068 (http ://ed ucati on.Qu estDi Xofts. com/f aq/FA Q164) Not Available [address] [address] [place], [address], 06/26/2022 10:30:23 06/23/19 23 06/26/2022 LIPID PANEL , STAND EJSUS chol/HDLC ratio 3.6 (calc ) <5.0 normal Not Available [address], [address], 06/26/2022 10:30:23 06/23/19 23 06/26/2022 LIPID PANEL , STAND JESUS non HDL cholesterol 113 mg/dL _(rito c) <130 normal For patie nts with diabe jazmin plus 1 major ASCVD risk facto r, treat ing to a non-H DL-C goal of <100 mg/dL (LDL- C of <70 mg/dL ) is consi macie a chuya pecarmela c optio n. Not Available [address], [address], 06/26/2022 10:30:23 06/23/19 23 06/26/2022 COMPR EHENS PAPITO METAB OLIC PANEL glucose 82 mg/dL 65-99 normal Fasti ng refer ence inter christiano Not Available [address], [address], 06/26/2022 10:30:24 06/23/19 23 06/26/2022 COMPR EHENS PAPITO METAB OLIC PANEL urea nitrogen (BUN) 16 mg/dL 7-25 normal Not Available [address], [address], 06/26/2022 10:30:24 06/23/19 23 06/26/2022 COMPR EHENS PAPITO METAB OLIC PANEL creatinine 0.84 mg/dL 0.70-1 .35 normal Not Available [facility] [address] [address] [place], [address], 06/26/2022 10:30:24 06/23/19 23 06/26/2022 COMPR EHENS PAPITO METAB OLIC PANEL eGFR 100 mL/mi n/1.7 3m2 > or = 60 normal The eGFR is based on the CKD-E PI 2020 equat ion. To calcu late the new eGFR from a previ ous Creat inine or Cysta tin C resul t, go to https ://leonardo angel.iris johns.o steph/sosa ofess ional s/ kdoqi /gfr% 5Fcal culat or Not Available [address] [address] [place], [address], 06/26/2022 10:30:24 06/23/19 23 06/26/2022 COMPR EHENS PAPITO METAB OLIC PANEL BUN/creatini ne ratio NOT APPLIC ABLE (calc ) 6-22 Not Available [address], [address], 06/26/2022 10:30:24 06/23/19 23 06/26/2022 COMPR EHENS PAPITO METAB OLIC PANEL sodium 137 mmol/ L 135-14 6 normal Not Available [facility] [address], [address], 06/26/2022 10:30:24 06/23/19 23 06/26/2022 COMPR EHENS PAPITO METAB OLIC PANEL potassium 3.9 mmol/ L 3.5-5. 3 normal Not Available [facility] [address] [address] [place], [address], 06/26/2022 10:30:24 06/23/19 23 06/26/2022 COMPR EHENS PAPITO METAB OLIC PANEL chloride 103 mmol/ L 98-110 normal Not Available [facility] [address], [address], 06/26/2022 10:30:24 06/23/19 23 06/26/2022 COMPR EHENS PAPITO METAB OLIC PANEL carbon dioxide 26 mmol/ L 20-32 normal Not Available [facility] [address], [address], 06/26/2022 10:30:24 06/23/19 23 06/26/2022 COMPR EHENS PAPITO METAB OLIC PANEL calcium 8.8 mg/dL 8.6-10 .3 normal Not Available [address], [address], 06/26/2022 10:30:24 06/23/19 23 06/26/2022 COMPR EHENS PAPITO METAB OLIC PANEL protein, total 6.4 g/dL 6.1-8. 1 normal Not Available [address], [address], 06/26/2022 10:30:24 06/23/19 23 06/26/2022 COMPR EHENS PAPITO METAB OLIC PANEL albumin 4.1 g/dL 3.6-5. 1 normal Not Available [address], [address], 06/26/2022 10:30:24 06/23/19 23 06/26/2022 COMPR EHENS PAPITO METAB OLIC PANEL globulin 2.3 g/dL_ (calc ) 1.9-3. 7 normal Not Available [address], [address], 06/26/2022 10:30:24 06/23/19 23 06/26/2022 COMPR EHENS PAPITO METAB OLIC PANEL albumin/glob ulin ratio 1.8 (calc ) 1.0-2. 5 normal Not Available [address], [address], 06/26/2022 10:30:24 06/23/19 23 06/26/2022 COMPR EHENS PAPITO METAB OLIC PANEL bilirubin, total 0.7 mg/dL 0.2-1. 2 normal Not Available [address], [address], 06/26/2022 10:30:24 06/23/19 23 06/26/2022 COMPR EHENS PAPITO METAB OLIC PANEL alkaline phosphatase 50 U/L 35-144 normal Not Available [facility] [address], [address], 06/26/2022 10:30:24 06/23/19 23 06/26/2022 COMPR EHENS PAPITO METAB OLIC PANEL AST 22 U/L 10-35 normal Not Available [address], [address], 06/26/2022 10:30:24 06/23/19 23 06/26/2022 COMPR EHENS PAPITO METAB OLIC PANEL ALT 16 U/L 9-46 normal Not Available [address], [address], 06/26/2022 10:30:24 06/23/19 23 06/26/2022 CBC (INCL UDES DIFF/ PLT) white blood cell count 5.0 thous and/u L 3.8-10 .8 normal Not Available [address], [address], 06/26/2022 10:30:25 06/23/19 23 06/26/2022 CBC (INCL UDES DIFF/ PLT) red blood cell count 4.82 rajni on/uL 4.20-5 .80 normal Not Available [address], [address], 06/26/2022 10:30:25 06/23/19 23 06/26/2022 CBC (INCL UDES DIFF/ PLT) hemoglobin 14.8 g/dL 13.2-1 7.1 normal Not Available [address], [address], 06/26/2022 10:30:25 06/23/19 23 06/26/2022 CBC (INCL UDES DIFF/ PLT) hematocrit 43.2 % 38.5-5 0.0 normal Not Available [facility] [address], [address], 06/26/2022 10:30:25 06/23/19 23 06/26/2022 CBC (INCL UDES DIFF/ PLT) MCV 89.6 fL 80.0-1 00.0 normal Not Available [address], [address], 06/26/2022 10:30:25 06/23/19 23 06/26/2022 CBC (INCL UDES DIFF/ PLT) MCH 30.7 pg 27.0-3 3.0 normal Not Available [facility] [address], [address], 06/26/2022 10:30:25 06/23/19 23 06/26/2022 CBC (INCL UDES DIFF/ PLT) MCHC 34.3 g/dL 32.0-3 6.0 normal Not Available [address], [address], 06/26/2022 10:30:25 06/23/19 23 06/26/2022 CBC (INCL UDES DIFF/ PLT) RDW 12.8 % 11.0-1 5.0 normal Not Available [address], [address], 06/26/2022 10:30:25 06/23/19 23 06/26/2022 CBC (INCL UDES DIFF/ PLT) platelet count 159 thous and/u L 140-40 0 normal Not Available [facility] [address], [address], 06/26/2022 10:30:25 06/23/19 23 06/26/2022 CBC (INCL UDES DIFF/ PLT) MPV 9.8 fL 7.5-12 .5 normal Not Available [facility] [address], [address], 06/26/2022 10:30:25 06/23/19 23 06/26/2022 CBC (INCL UDES DIFF/ PLT) absolute neutrophils 2900 cells /uL 1500-7 800 normal Not Available [address], [address], 06/26/2022 10:30:25 06/23/19 23 06/26/2022 CBC (INCL UDES DIFF/ PLT) absolute lymphocytes 1240 cells /uL 850-39 00 normal Not Available [address], [address], 06/26/2022 10:30:25 06/23/19 23 06/26/2022 CBC (INCL UDES DIFF/ PLT) absolute monocytes 730 cells /uL 200-95 0 normal Not Available [address], [address], 06/26/2022 10:30:25 06/23/19 23 06/26/2022 CBC (INCL UDES DIFF/ PLT) absolute eosinophils 100 cells /uL 15-500 normal Not Available [address], [address], 06/26/2022 10:30:25 06/23/19 23 06/26/2022 CBC (INCL UDES DIFF/ PLT) absolute basophils 30 cells /uL 0-200 normal Not Available [address], [address], 06/26/2022 10:30:25 06/23/19 23 06/26/2022 CBC (INCL UDES DIFF/ PLT) neutrophils 58 % normal Not Available [facility] [address], [address], 06/26/2022 10:30:25 06/23/19 23 06/26/2022 CBC (INCL UDES DIFF/ PLT) lymphocytes 24.8 % normal Not Available [address], [address], 06/26/2022 10:30:25 06/23/19 23 06/26/2022 CBC (INCL UDES DIFF/ PLT) monocytes 14.6 % normal Not Available [address], [address], 06/26/2022 10:30:25 06/23/19 23 06/26/2022 CBC (INCL UDES DIFF/ PLT) eosinophils 2.0 % normal Not Available [facility] [address], [address], 06/26/2022 10:30:25 06/23/1906/26/2022 CBC (INCL UDES DIFF/ PLT) basophils 0.6 % normal Not Available [address], [address], 06/26/2022 10:30:25 06/23/1906/26/2022 T4, FREE T4, free 1.0 NG/dL 0.8-1. 8 normal Not Available [address], [address], 06/26/2022 10:30:26 06/23/1906/26/2022 T3, FREE T3, free 3.7 pg/mL 2.3-4. 2 normal Not Available [address], [address], 06/26/2022 10:30:26 06/23/1906/26/2022 TSH TSH 3.44 mIU/L 0.40-4 .50 normal Not Available [facility] [address], [address], 06/26/2022 10:30:27 06/23/1906/26/2022 TESTO STERO NE, FREE (DIAL YSIS) AND TOTAL ,MS testosterone , total, MS 289 NG/dL 250-11 00 Men with clini wilberto signi fican t hypog onada l sympt oms and testo stero ne value s repea tedly in the range of the 200-3 00 ng/dL or less, may benef it from testo stero ne treat ment after adequ ate risk and benef its couns eling . For addit ional infor stanley eldridge refer to https ://ed devinati on.qu yessica LiquidCompass. com/f aq/FA Q165 (This link is being provi ded for infor yoselin nal/e ducat ional purpo ses only. ) (Note ) This test was devel oped and its huma tical perfo rmanc e zain cteri stics have been deter mined by [employer]. It has not been clear ed or appro percy by the FDA. This assay has been valid ated pursu ant to the CLIA regul ation s and is used for clini rito purpo ses. Not Available [facility] [address] [place], [address], 06/26/2022 10:30:28 06/23/1906/26/2022 TESTO STERO NE, FREE (DIAL YSIS) AND TOTAL ,MS testosterone , free 55.9 pg/mL 35.0-1 55.0 (Note ) This test was devel oped and its huma tical perfo rmanc e zain cteri stics have been deter mined by [employer]. It has not been clear ed or appro percy by the FDA. This assay has been valid ated pursu ant to the CLIA regul ation s and is used for clini rito purpo ses. MDF med fusio n [address] [facility] [address] [facility] [address] [phone] Chandler martel MD Not Available [facility] [address] [place], [address], 06/26/2022 10:30:28 07/25/1907/24/2022 COLOG UARD cologuard result reportable NEGATI VE negati ve NEGAT PAPITO TEST RESUL T. A negat papito Colog uard resul t indic ates a low likel ihood that a color ectal cance r (CRC) or advan solis adeno ma (john omato us polyp s with more advan solis pre-m align ant featu res) is prese nt. The [facility] e that a perso n with a negat papito Colog uard test has a color ectal cance r is less than 1 in 1500 (nega tive predi ctive value >99.9 %) or has an advan solis adeno ma is less than 5.3% (nega tive predi ctive value 94.7% ). These data are based on a prosp ectiv e cross -sect ional study of ,00 0 indiv idual s at amity ge risk for color ectal cance r who were scree jeferson with both Colog uard and colon oscop y. (Anderson Rudd et al, N Engl J Med 2014; 370(1 4):12 86-12 97) The bernardo l value (refe rence range ) for this assay is negat papito. COLOG UARD RE-SC REEAMANDA CARDOZA RECOM MENDA TION: Perio dic color ectal cance r scree arthur is an impor tant part of preve ntive healt hcare for asymp tomat ic indiv idual s at amity ge risk for color ectal cance r. Follo wing a negat papito Colog uard resul t, the Ameri can Cance r Socie ty and U.S. Multi -Soci ety Task Force scree arthur guide lines recom mend a Colog uard re-sc emir cardoza inter christiano of 3 years . Refer ences : Ameri can Cance r Socie ty Guide line for Color ectal Cance r Scree arthur: https ://ww w.can cer.o rg/ca ncer/ colon -rect al-ca ncer/ detec tion- diagn osis- stagi ng/ac s-rec ommen datio ns.ht ml.; Rafael LEMUS, Michael CROWELL, Edgardo HaskinsK, Color ectal Cance r Scree arthur: Recom menda tions for Physi cians and Patie nts from the U.S. Multi -Soci ety Task Force on Color ectal Cance r Scree arthur , Lauren michelle rolog y 2017; 112:1 016-1 030. TEST DESCR IPTIO N: Custer site algor ithmi c huma sis of stool DNA-b bridger ramirez with hemog lobin immun oassa y. Quant itati ve value s of indiv idual bioma rkers are not repor table and are not assoc iated with indiv idual bioma rker resul t refer ence range s. Colog uard is inten ded for color ectal cance r scree arthur of adult s of eithe r sex, 45 years or older , who are at [facility] for color ectal cance r (CRC) . Colog uard has been appro percy for use by the U.S. FDA. The perfo rmanc e of Colog uard was estab lishe d in a cross secti onal study of [facility] adult s aged 50-84 . Colog uard perfo rmanc e in patie nts ages 45 to 49 years was estim ated by sub-g roup huma sis of near- age group s. Colon oscop ies perfo rmed for a posit papito resul t may find as the most clini wilberto signi carole veras lesio n: color ectal cance r [4.0% ], advan solis adeno ma (incl uding sessi le natalia leonor polyp s great er than or equal to 1cm diame ter) [20%] or non- advan solis adeno ma [31%] ; or no color ectal neopl les [45%] . These estim ates are deriv ed from a prosp ectiv e cross -sect ional scree arthur study of ,00 0 indiv idual s at [facility] risk for color ectal cance r who were scree jeferson with both Colog uard and colon oscop y. (Anderson Dietz al, N Engl J Med 2014; 370(1 4):12 86-12 97.) Colog uard may produ ce a false negat papito or false posit papito resul t (no color ectal cance r or preca ncero us polyp prese nt at colon oscop y follo w up). A negat papito Colog uard test resul t does not guara ntee the absen ce of CRC or advan solis adeno ma (pre- cance r). The curre nt Colog uard scree arthur inter christiano is every 3 years . ([place] ican Cance r Socie ty and U.S. Multi -Soci ety Task Force ). Colog uard perfo rmanc e data in a 10,00 0 patie nt pivot al study using colon oscop y as the refer ence metho d can be acces sed at the follo wing locat ion: www.e xactl abs.c om/re sults . Addit ional descr iptio n of the Colog uard test proce ss, warni ngs and preca ution s can be found at www.c ologu jesus.c om. Not Available [employer] (Cologuard Orders Only) [address], [place], [address], 08/01/2022 01:17:40 09/24/19 22 09/23/2021 CT, abdom en + pelvi s, w/o contr ast No observ ation record ed. [id number] [address] [facility] [address] [place] [address] [address], [place], [address], 04/15/2022 06:47:06 Result Notes None recorded. Problems Name Problem SNOMED Code Status Onset Date Resolution Date Notes Provider Name and Address Organization Details Recorded Time Contact dermatitis caused by urushiol from Eastern poison angus 531076292 Active 2021 Not Available [facility] 3 06:42:33 Edema 228967431 Active 2019 Not Available [facility] 3 06:42:33 Onychomycosis of toenails 842480889 Active 2021 Marisol Anglin APRN [address] [facility], [address] [address], [place], [address] , [facility] [employer] [facility] 4 14:10:20 Hyperlipidemi a 45263298 Active 2019 Marisol Anglin APRN [address], [facility] [address], [place], [address] , [facility] [employer] [facility] 4 14:10:08 Pain of joint 31013818 Active 2019 Not Available [facility] 3 06:42:34 Essential hypertension 53045759 Active 2019 Marisol Anglin, SHANTI [address], [facility] [address], [place], [address] , [facility] [employer] [facility] 4 14:10:05 Dyspnea on exertion 89449237 Active 2019 Not Available [facility] 3 06:42:34 Generalized rash 937153877 Active 2021 Not Available [facility] 3 06:42:34 Fatigue 74427340 Active 2021 Not Available [facility] 3 06:42:34 Hypothyroidis m 24489252 Active 2022 Marisol Anglin APRN [address], [facility] [address], [place], [address] , [facility] [employer] [facility] 4 14:10:13 Cough 96446318 Active 2022 Essence Olson RN null, [facility] [employer] [facility] [employer] [facility] 3 12:23:59 Neck pain 76168445 Active 2022 OXANA Oh null, [facility] [employer] [facility] 3 13:35:56 Headache 30290007 Active 2022 OXANA Oh null, [facility] [employer] [facility] 3 13:36:04 Problem Notes None recorded. Procedures Surgical History Date Name Laterality Status Provider Name and Address Organization Details Recorded Time Appendectomy completed Not Available [facility] 04/15/2022 06:39:08 Hernia Repair completed Not Available [facility] 04/15/2022 06:39:08 Imaging Results None recorded. Procedure Notes None recorded. Medical Equipment None Reported. Allergies No known drug allergies Medications Name Sig Start Date Stop Date Status Note LastModified by Organization Details LastModified Time azithromyci n 250 mg tablet TAKE 2 TABLETS BY MOUTH ON DAY 1, AND THEN TAKE 1 TABLET BY MOUTH ONCE A DAY ON DAY 2 THROUGH DAY 5 08/11 completed Not Available Not Available Not Available hydrocodone 5 mg-acetamin ophen 325 mg tablet TAKE 1 TABLET BY MOUTH EVERY 8 HOURS NEEDED FOR PAIN 12/02 completed Not Available Not Available Not Available prednisone 20 mg tablet TAKE 1 TABLET BY MOUTH TWICE DAILY FOR 5 DAYS active Not Available Not Available No t Available metoprolol succinate ER 100 mg tablet,exte nded release 24 hr active Not Available Not Available Not Available [employer] USE DIRECTED WITH ALBUTEROL INHALER active Not Available Not Available No t Available levothyroxi ne 75 mcg tablet TAKE 1 TABLET BY MOUTH ONCE DAILY 08/11 completed Not Available Not Available Not Available terbinafine HCl 250 mg tablet Take 1 tablet every day by oral route. 05/28 completed Not Available Not Available Not Available levothyroxi ne 88 mcg tablet Take 1 tablet(s) every day by oral route. active Not Available Not Available No t Available tamsulosin 0.4 mg capsule TAKE 1 CAPSULE BY MOUTH ONCE DAILY 12/02 completed Not Available Not Available Not Available oseltamivir 75 mg capsule TAKE 1 CAPSULE BY MOUTH EVERY 12 HOURS FOR 5 DAYS active Not Available Not Available No t Available methylpredn isolone 4 mg tablets in a dose pack TAKE BY MOUTH DIRECTED ON INSIDE OF PACKAGE active Not Available Not Available No t Available albuterol sulfate HFA 90 mcg/actuati on aerosol inhaler INHALE 2 PUFFS BY MOUTH EVERY 4 HOURS NEEDED FOR SHORTNESS OF BREATH OR WHEEZE active Not Available Not Available No t Available ondansetron 4 mg disintegrat ing tablet DISSOLVE 1 TABLET IN MOUTH EVERY 6 HOURS NEEDED FOR NAUSEA AND VOMITING 12/02 completed Not Available Not Available Not Available amoxicillin 875 mg-potassiu m clavulanate 125 mg tablet TAKE 1 TABLET BY MOUTH TWICE DAILY FOR 7 DAYS active Not Available Not Available No t Available rosuvastati n 20 mg tablet TAKE 1 TABLET BY MOUTH ONCE DAILY active Not Available Not Available No t Available Boostrix Tdap 2.5 Lf unit-8 mcg-5 Lf/0.5 mL intramuscul ar syringe [facility]ARMACY [facility]MINIST[facility] RED 09/25 completed Not Available Not Available Not Available hydrochloro thiazide 12.5 mg tablet TAKE 1 TABLET BY MOUTH ONCE DAILY active Not Available Not Available No t Available Flublok Quad (PF) 180 mcg (45 mcg x 4)/0.5 mL IM syringe [facility]ARMACY ADMINISTE MIL 09/25 completed Not Available Not Available Not Available Vitals Date Recorded Body height Body mass index (BMI) Body weight Body temperature Heart rate Systolic blood pressure Diastolic blood pressure Provider Name and Address Organization Details Last Updated DateTime 3 175.26 cm 32.5 kg/m2 81801.3 2 g 98.4 [degF] 60 /min 130 mm[Hg] 88 mm[Hg] OXANA Davies [facility] [employer] [facility] 3 09:58:14 Date Recorded Body mass index (BMI) Body height Heart rate Body temperature Body weight Systolic blood pressure Diastolic blood pressure Provider Name and Address Organization Details Last Updated DateTime 2 32.2 kg/m2 175.26 cm 60 /min 96.7 [degF] 40566.1 4 g 130 mm[Hg] 80 mm[Hg] Not Available [facility] 3 06:41:58 Date Recorded Body height Body mass index (BMI) Body weight Body temperature Heart rate Systolic blood pressure Diastolic blood pressure Provider Name and Address Organization Details Last Updated DateTime 3 175.26 cm 32.2 kg/m2 96488.1 4 g 98 [degF] 50 /min 134 mm[Hg] 84 mm[Hg] OXANA Davies [facility] [employer] [facility] 3 13:08:01 Date Recorded Body mass index (BMI) Body height Heart rate Body temperature Body weight Systolic blood pressure Diastolic blood pressure Provider Name and Address Organization Details Last Updated DateTime 1 31.9 kg/m2 175.26 cm 60 /min 97.8 [degF] 39270.9 5 g 122 mm[Hg] 80 mm[Hg] Not Available [employer] 3 06:41:58 Date Recorded Body height Heart rate Body temperature Body weight Systolic blood pressure Diastolic blood pressure Provider Name and Address Organization Details Last Updated DateTime 2 175.26 cm 64 /min 98.5 [degF] 98699.5 4 g 124 mm[Hg] 72 mm[Hg] Not Available [facility] 06:41:59 Social History Question Answer Notes LastModified by Organizat ion Details LastModified Time Tobacco Smoking Status Never Smoker Not Available [facility] 04/15/2022 06:39:01 Do You Have An Advance Directive? No MIGRATION.06066 [id number] Information not available 04/15/2022 What Is Your Level Of Caffeine Consumption? Moderate MIGRATION.69360 [id number] Information not available 04/15/2022 In The 14 Days Before Symptom Onset, Have You Had Close Contact With A Laboratory-confi rmed COVID-19 While That Case Was Ill? No MIGRATION.04265 [id number] Information not available 04/15/2022 In The 14 Days Before Symptom Onset, Have You Had Close Contact With A Person Who Is Under Investigation For COVID-19 While That Person Was Ill? No MIGRATION.98891 72175 Information not available 04/15/2022 What Type Of Diet Are You Following? REGULAR MIGRATION.91955 95326 Information not available 04/15/2022 What Is The Highest Grade Or Level Of School You Have Completed Or The Highest Degree You Have Received? [id number] MIGRATION.26170 80066 Information not available 04/15/2022 Have There Been Any Changes To Your Family Or Social Situation? No MIGRATION.93146 31926 Information not available 04/15/2022 What Is The Fluoride Status Of Your Home? Unknown MIGRATION.21194 [id number] Information not available 04/15/2022 Are There Any Guns Present In Your Home? Yes MIGRATION.92597 01732 Information not available 04/15/2022 Do You Use Insect Repellent Routinely? No MIGRATION.92687 78848 Information not available 04/15/2022 Where Do You Live? SingleLevelHouse MIGRATION.61423 99632 Information not available 04/15/2022 Do You Have A Medical Power Of Mfts? No MIGRATION.98869 89035 Information not available 04/15/2022 What Was The Date Of Your Most Recent Tobacco Screening? 08/11/2022 [email or web address] Information not available 08/11/2022 Have You Ever Been Counseled For Unhealthy Alcohol Use? No MIGRATION.55818 64543 Information not available 04/15/2022 Do You Have Any Pets? Yes MIGRATION.53384 88925 Information not available 04/15/2022 What Is Your Relationship Status? MIGRATION.83844 31829 Information not available 04/15/2022 Do You Use Your Seat Belt Or Car Seat Routinely? Yes MIGRATION.88289 88112 Information not available 04/15/2022 Do You Have Smoke And Carbon Monoxide Detectors In Your Home? Yes MIGRATION.96887 07029 Information not available 04/15/2022 Are You Passively Exposed To Smoke? No MIGRATION.86536 90030 Information not available 04/15/2022 Are There Any Smokers In Your House? No MIGRATION.83043 78601 Information not available 04/15/2022 What Types Of Sporting Activities Do You Participate In? None MIGRATION.12021 61635 Information not available 04/15/2022 Do You Use Sunscreen Routinely? Yes MIGRATION.26986 92093 Information not available 04/15/2022 Has Tobacco Cessation Counseling Been Provided? No Not Needed-ne soraida Smoked MIGRATION.87904 65977 Information not available 04/15/2022 Have You Recently Traveled Abroad? No MIGRATION.66035 72020 Information not available 04/15/2022 Are You Currently In School? No MIGRATION.08386 45105 Information not available 04/15/2022 Do You Have Any Dietary Restrictions? No MIGRATION.29879 18332 Information not available 04/15/2022 Sex: Male Functional Status Question Answer Note LastModified by Organization Details LastModified Time Do you use any illicit or recreational drugs? No MIGRATION.514 [id number] Information not available 04/15/2022 Do you or have you ever used any other forms of tobacco or nicotine? No MIGRATION.318 [id number] Information not available 04/15/2022 What is your level of alcohol consumption? Occasional MIGRATION.389 [id number] Information not available 04/15/2022 Have you been exposed to chemicals or toxins? 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 Occasional MIGRATION.916 [id number] Information not available 04/15/2022 What type of noise exposure are you exposed to? noExposureToExcessiveNoise MIGRATION.401 [id number] Information not available 04/15/2022 Mental Status Question Answer Note LastModified by Organizat ion Details LastModified Time Do you feel stressed (tense, restless, nervous, or anxious, or unable to sleep at night)? [id number] MIGRATION.[id number] Information not available 04/15/2022 Family History Relationship Description Onset Age of this Age Resolved Age Notes LastModified by Organization Details LastModified Time Father Alzheimer's disease MIGRATION.619 [id number] Not available 04/15/2022 06:39:10 Father Hypertensive disorder MIGRATION.069 [id number] Not available 04/15/2022 06:39:10 Paternal Grandmother Alzheimer's disease MIGRATION.394 [id number] Not available 04/15/2022 06:39:10 Mother Malignant neoplasm of lung MIGRATION.002 [id number] Not available 04/15/2022 06:39:10 Medical History Condition Response CHEST XRAY N KIDNEY STONES N MRSA N CARPAL TUNNEL SYNDROME N HISTORY OF DRUG ABUSE N RADIATION / CHEMOTHERAPY N COPD N SPORTS INJURY N BLOOD DISEASES N SURGERY N MUMPS N SHINGLES N BOWEL PROBLEMS N FAILED BACK SYNDROME N STROKE/TIA N THYROID DISEASE N ULCERS N OTHER MODALITIES N CERVICALGIA N TB SKIN TEST N MYOCARDIAL INFARCTION N OBESITY N PARAPELGIA N URINARY/BLADDER/KIDNEY PROBLEMS N Increased Urination N CORONARY ARTERY DISEASE (CAD) N INPATIENT PSYCH CARE N Do you have Advance directive? N MENIERE'S DISEASE N ADDICTION CONCERNS N CAROTID STENOSIS N ENDOMETRIOSIS N Impotence N PARATHYROID DISEASE N PERIPHERAL VASCULAR DISEASE N MUSCLE,JOINT OR BONE PROBLEMS N DVT N STOMACH ULCERS N GASTROINTESTINAL BLEEDING N BLOOD CLOTS N Difficulty Urinating N PAST HISTORY OF VEHICULAR ACCIDENT N ASTHMA N USE OF NSAIDS N ARTERIAL INSUFFICIENCY N CHF N GI PROBLEMS N Low Testosterone N VISION/EYE PROBLEMS N MALE HYPOGONADISM N PERSONALITY DISORDER N ELBOW PAIN N TOURETTE'S N ANXIETY DISORDER N BLADDER/KIDNEY N CHRONIC EAR INFECTIONS N BIPOLAR DISORDER N CONDUCT DISORDER N OSTEOARTHRITIS N TUBERCULOSIS N DIVERTICULITIS N SLEEP APNEA N ALLERGIES/HAYFEVER N HEART ARRHYTHMIA N PROSTATE N INSOMNIA N PAST MEDICATION HISTORY N EYE PROBLEMS N SCHIZOAFFECTIVE N EDEMA Y HYPOTHYROIDISM Y CAROTID BLOCKAGE N CONSTIPATION N MOOD DISORDER N BACK / NECK PROBLEMS N MIGRAINES N BREAST PROBLEMS N POLYCYSTIC OVARIES N FIBROMYALGIA N OSTEOPOROSIS N Do you have a healthcare POA? N PERIPHERAL NEUROPATHY N APPENDICITIS N VON WILLIBRAND'S DISEASE N SEASONAL ALLERGIES N HEARTBURN / REFLUX N PLEURISY N ADD/ADHD N Bronchoscopy N AUTISM SPECTRUM DISORDER (ASD) N SLEEP DISORDER N RETINOPATHY N HEADACHES/MIGRAINES N SLEEP STUDY N VASCULAR DISEASE N HEART MURMUR N Blood Disorder N HIP PAIN N HEART DISEASE/HEART PROBLEMS N CLAUDICATION N DEVELOPMENTAL OR BEHAVIORAL DISORDERS N MULTIPLE SCLEROSIS N PULMONARY FUNCTION TEST N ANESTHESIA COMPLICATIONS N ATRIAL FIBRILLATION N Gall Stones N PULMONARY EMBOLISM N AUTOIMMUNE DISEASE N NERVE DISEASE N CYSTITIS N BLINDNESS N RHEUMATIC FEVER N BLADDER PROBLEMS N Enlarged Prostate N OTHER # 1 N POLIO N LUNG DISEASE/DISORDER N Other # 2 N ANKLE PAIN N EAR OR HEARING PROBLEMS N PAST SPINAL SURGERY N SCHIZOPHRENIA N SHOULDER PAIN N FEMALE PROBLEMS / INFECTIONS N DEPRESSION (INCLUDING POST ) N CHEST CT N KNEE PAIN N RENAL INSUFFICIENCY N BENIGN PROSTATIC HYPERPLASIA N MEASLES N HYPOTENSION N GERD/NAUSEA N EXCESSIVE PERSPIRATION N ANEURYSM N USE OF BLOOD THINNERS N SKIN PROBLEMS N EMPHYSEMA N SHORTNESS OF BREATH N GASTROINTESTINAL DISORDER N PTSD N Do you have a living will? N CATARACTS N CONCUSSION OR SPINAL TRAUMA N ERECTILE DYSFUNCTION N VARICOSITIES N NEUROPATHY N INFERTILITY N AIDS/HIV N FRACTURES N CHEMOTHERAPY / RADIATION N LIVER DISEASE N HYPERTENSION Y Deficiency N Metal allergy N BLOOD TRANSFUSION N ANEMIA/BLOOD DISORDER N BRONCHITIS N GLAUCOMA N FOOT PROBLEM N HEART VALVE DISORDERS N CHICKENPOX N SOFT TISSUE INJURY N BACK INJECTIONS N INFECTIOUS DISEASE N ESRD N PAST INTERVENTIONAL PAIN MANAGEMENT HIST ORY N RHEUMATOID ARTHRITIS N HIGH CHOLESTEROL / HYPERLIPIDEMIA Y HYPERTHYROIDISM N UTI N PVD N EATING DISORDER N NEUROLOGICAL PROBLEMS N CHRONIC PAIN SYNDROME N HAVE YOU BEEN HOSPITALIZED OR SEEN IN [facility] ER IN THE PAST YEAR ? Y ATHEROSCLEROSIS N BURSITIS N HERNIATED DISC N DIALYSIS N ECZEMA N HISTORY WITH COMPLICATIONS WITH ANESTHES IA ? N PSYCHOSIS N ARTHRITIS N RESPIRATORY PROBLEMS N PAST HISTORY OF FALL N DIABETES, TYPE N BAD TEETH N PARKINSON N ENT N POST LAMINECTOMY SYNDROME N HEPATITIS / LIVER DISEASE N PULMONARY DISEASE N GOUT N ALZHEIMER'S DISEASE N PAIN N FATIGUE N Brain Problems N HERPES N DEMENTIA N SEIZURES/EPILEPSY N PACEMAKER N DIZZINESS N HEAD TRAUMA OR INJURY N KIDNEY DISEASE N SCARLET FEVER N MENTAL DISORDER/ILLNESS N NEUROPSYCHOLOGICAL N CARDIAC ARRHYTHMIA N CANCER: SPECIFY N PNEUMONIA N DEAF/HEARING IMPAIRED N Immunizations Vaccine Type Date Status Note Provider Nam e and Address Organization Details Recorded Time Influenza, recombinant, quadrivalent, PF 0 completed Marisol Anglin, FLOOR REFINISHER [address] [facility], [facility] [address], [place], [address], [facility] [employer] 10/22/2023 14:08:32 COVID-19, mRNA, LNP-S, PF, 30 mcg/0.3 mL dose 1 completed Mariosl Anglin APRN [address], [place], [address], [facility] [employer] [facility] 10/22/2023 14:08:32 COVID-19, mRNA, LNP-S, PF, 30 mcg/0.3 mL dose 1 completed Marisol Anglin APRN [address], [place], [address], [facility] [employer] [facility] 10/22/2023 14:08:32 COVID-19, mRNA, LNP-S, bivalent, PF, 30 mcg/0.3 mL dose 3 completed Marisol Anglin APRN [address], [place], [address], [facility] [employer] [facility] 10/22/2023 14:08:32 Influenza, split virus, trivalent, preservative 2 completed Marisol Anglin APRN [address], [place], [address], [facility] [employer] [facility] 10/22/2023 14:08:32 Tdap 0 completed Marisol Anglin APRN [address], [place], [address], [facility] [employer] [facility] 10/22/2023 14:08:32 Influenza, split virus, quadrivalent, preservative 0 completed Marisol Anglin APRN [address], [place], [address], [facility] [employer] [facility] 10/22/2023 14:08:32 Influenza, split virus, quadrivalent, PF 2 completed Not Available [facility] 04/15/2022 06:46:57 Past Encounters Encounter ID Performer Location Encounter Start Date Encounter Closed Date Diagnosis/Indication Diagnosis SNOMED-CT Code Diagnosis ICD10 Code Diagnosis Note [id number] Kurtis Grajeda MD [facility] Internal Med Patricia parrish [facility] [place] , [facility] [place] [address] 10/08/2020 00:00:00 10/08/2020 10:56:31 [id number] Kurtis Grajeda MD [facility] Internal Med Patricia parrish [address] [place] [address] [place] [address] 07/29/2021 00:00:00 07/29/2021 13:49:10 [id number] Kurtis Grajeda MD [facility] Internal Med Patricia parrish [address] [place] [address] [place] [address] 12/02/2021 00:00:00 12/02/2021 21:48:28 [id number] Kurtis Grajeda MD [facility] Internal Med Patricia parrish [address] [place] [address] [place] [address] 05/28/2022 09:48:29 05/28/2022 10:37:40 Essential hypertension 38320898 I10 Hyperlipidemia 29249702 E78.5 Screening for malignant neoplasm of colon 547851868 Z12.11 Fatigue 48577462 R53.83 Hypothyroidism 95866440 E03.9 [id number] Kurtis Grajeda MD [facility] Internal [facility] Patricia parrish [address] [place] [address] [place] [address] 08/11/2022 12:50:29 08/11/2022 13:42:03 Neck pain 31884163 M54.2 Headache 59931382 R51.9 Health Concerns Section Related Observation LastModified by Organization Detai ls LastModified Time None Recorded Concern Status LastModified by Organization Details LastModified Time None Recorded Advance Directives Directive N: Payers Encounter Date Sequence Insurance Name Policy Number Policy Gordon Covered Member ID Gordon Member ID Guarantor Name 05/28/2022 1 [facility] [id number] Haylee Nogueirason [id number] Jose Pryor 08/11/2022 1 [facility] [id number] [facility] [id number] Jose Pryor Notes Date Note Type Note Provider Name and Address Organization Details Recorded Time 05/29/19 23 text/htm l Hypothyroid no heat or cold intoleranceFatigue nonspecificHyperlipidemia tries to follow a low-fat dietHypertension no headache no dizziness Kurtis Grajeda MD [facility] [address], [place], [address], [id number] [facility] 06/07/2022 10:54:00 08/12/19 23 text/htm l Pain in his neck and travels to his head not really having any problems with nausea or vomiting no trauma pain moderate Kurtis Grajeda MD [address], [place], [address], [employer] [facility] 08/18/2022 15:41:18
--- OUTSIDE RECORDS SUMMARY | 2024-07-17 14:21 | XMS_ITS | Clinical Summary ---
Author Organization [facility] Address [address] [place] [address] Care Team Providers Care Grid Caster Name Role Phone Michel Lazcano DO Primary Care Provider [phone] Allergies No known active allergies Medications metoprolol XL (TOPROL-XL) 100 mg 24 hr tablet Take 1 tablet (100 mg total) by mouth daily Active levothyroxine (Synthroid) 88 mcg tablet Take 1 tablet (88 mcg total) by mouth Active simvastatin (ZOCOR) 20 mg tablet Take by mouth Active hydroCHLOROthiaz solitario (HYDRODIURIL) 12.5 mg tablet Take 1 tablet (12.5 mg total) by mouth daily Active rosuvastatin (CRESTOR) 20 mg tablet Take 1 tablet (20 mg total) by mouth daily Active guaiFENesin ER (MUCINEX) 600 mg 12 hr tabletIndication s:Lower respiratory infection Take 2 tablets (1,200 mg total) by mouth 2 (two) times a day Take 1200mg BID x7 days 28 tablet 4 Active inhalational spacing device (Aerochamber MV) spacerIndication s:Lower respiratory infection Use with albuterol inhaler 1 each 4 Active lidocaine (LIDODERM) 5 % Place 1 patch on the skin daily for 14 days Remove & discard patch within 12 hours or as directed by . 14 patch 4 Active methocarbamoL (ROBAXIN) 500 mg tablet Take 1 tablet (500 mg total) by mouth 2 (two) times a day 20 tablet 4 Active naproxen (NAPROSYN) 500 mg tablet Take 1 tablet (500 mg total) by mouth 2 (two) times a day with meals 30 tablet 4 Active albuterol HFA (PROVENTIL HFA,VENTOLIN HFA,PROAIR HFA) 90 mcg/actuation inhalerIndicatio ns:Acute cough,Wheezing,U pper respiratory infection, acute Inhale 2 puffs every 4 (four) hours as needed for shortness of breath or wheezing (Cough) 18 g 4 Active benzonatate (TESSALON) 100 mg capsuleIndicatio ns:Cough Take 1 capsule (100 mg total) by mouth 3 (three) times a day as needed for cough 42 capsule 4 Active Active Problems No known active problems Immunizations Immunization Administration Dates Next Due Influenza, Quadrivalent, Rec ombinant, Egg Free, Preservative Free, Intramuscular 12/22/2019 Influenza, Quadrivalent, Spl it, Preservative Free, Intramuscular 12/02/2021 Influenza, Trivalent, IM (MDV) 01/21/2012 Tdap 12/22/2019 Social History Tobacco Use Types Packs/Day Years Used Date Smoking Tobacco: Never Assessed Personal Safety Answer Date Recorded Have you ever been in or are you currently in a harmful physical or emotional relationship or is someone making you feel afraid or unsafe? Denies 12/14/2023 Sex and Gender Information Value Date Recorded Sex Assigned at Not on file Legal Sex Male 11:55 PM TILE GRINDER Gender Identity Not on file Sexual Orientation Not on file Obstetrics History Last Filed Vital Signs Vital Sign Reading Time Taken Comments Blood Pressure 128/90 01/16/2024 3:32 PM TILE GRINDER Pulse 74 01/16/2024 3:32 PM TILE GRINDER Temperature 37.1 C (98.7 F) 01/16/2024 3:32 PM TILE GRINDER Respiratory Rate 16 01/16/2024 3:32 PM TILE GRINDER Oxygen Saturation 98% 01/16/2024 3:32 PM TILE GRINDER Inhaled Oxygen Concentration - - Weight 93 kg (205 lb) 01/16/2024 3:32 PM TILE GRINDER Height 175.3 cm (5' 9) 01/16/2024 3:32 PM TILE GRINDER Body Mass Index 30.27 01/16/2024 3:32 PM TILE GRINDER Plan of Treatment Health Maintenance Due Date Last Done Comments Colon Cancer Screening-Colonoscopy 1962 Depression Screening 1962 Hepatitis C Screening 1962 Prostate Cancer Screening-PSA 1962 Hepatitis B Screening 1980 Regular Well Visit/Exam 18-64 1980 Zoster Vaccine (1 of 2) 2012 Covid-19 Vaccine ( - 2023-2 5 season) 2023 04/26/2022, 06/11/2020, 05/18/2020 Influenza Vaccine (Season Ended) 2024 12/02/2021, 12/22/2019, 01/21/2012 DTaP/Tdap/Td Vaccine (2 - Td or Tdap) 12/21/2029 12/22/2019 Pneumococcal vaccine <65 Aged Out No longer eligible based on patient's age to complete this topic Insurance [address] [place] [id number] [facility] [address] [place] [id number] Care Teams Grid Caster Relationship Specialty Start Date End Date Michel Lazcano DO PCP - General 05/31/16
--- OUTSIDE RECORDS SUMMARY | 2024-07-17 14:21 | XMS_ITS | Clinical Summary ---
Author Organization [facility] Address [address] [place] [address] Phone Care Team Providers Care Hospital Aide Name Role Phone DreMichel reyes Daryl Primary Care Provider Allergies No known active allergies Medications metoprolol Succinate (TOPROL-XL) 100 MG TABLET SR 24 HR Take 100 mg by mouth daily. Active LEVOTHYROXINE SODIUM PO Take by mouth. Active SIMVASTATIN PO Take by mouth. Active benzonatate (TESSALON) 100 MG Capsule Take 100 mg by mouth nightly as needed for Cough. Active promethazine-co deine (PHENERGAN WITH CODEINE) 6.25-10 MG/5ML Syrup Take 5 mL by mouth every 4 hours as needed for Cough. 120 mL 03/07/2017 Active Social History Tobacco Use Types Packs/Day Years Used Date Smoking Tobacco: Former Alcohol Use Standard Drinks/Week Comments Yes 6 (1 standard drink = 0.6 oz pur e alcohol) Sex and Gender Information Value Date Recorded Sex Assigned at Not on file Legal Sex Male 4:25 PM [facility] DIRECTOR Gender Identity Not on file Sexual Orientation Not on file Last Filed Vital Signs Vital Sign Reading Time Taken Comments Blood Pressure 145/93 03/07/2017 1:30 PM [facility]ILY [facility] C[facility] DIRECTOR Pulse 55 03/07/2017 1:30 PM [facility] C[facility] DIRECTOR Temperature 36.7 C (98.1 F) 03/07/2017 11:49 AM [facility] DIRECTOR Respiratory Rate 20 03/07/2017 11:49 AM [facility] C[facility] DIRECTOR Oxygen Saturation 94% 03/07/2017 1:30 PM [facility] C[facility] DIRECTOR Inhaled Oxygen Concentration - - Weight 97.5 kg (215 lb) 03/07/2017 11:49 AM [facility] C[facility] DIRECTOR Height 175.3 cm (5' 9) 03/07/2017 11:49 AM [facility] C[facility] DIRECTOR Body Mass Index 31.75 03/07/2017 11:49 AM [facility] C[facility] DIRECTOR Plan of Treatment Health Maintenance Due Date Last Done Comments Hepatitis C Virus (HCV) Screening 1962 TdaP Immunization 1962 Colonoscopy 2007 Colorectal Cancer Screening 2007 Cologuard 2012 Immunochemical Fecal Occult Blood 2012 Pneumococcal Immunization (5 0+ years) (1 of 1 - PCV) 2012 Zoster Immunization (1 of 2) 2012 PSA Discussion 2017 Influenza Immunization (#1) 2023 SARS-COV-2 Immunization (1 - 2023- season) 2023 Respiratory Syncytial Virus (RSV) Immunization (Adult) (1 - 1-dose 75+ series) 2037 Hepatitis B Immunization Aged Out No longer eligible based on patient's age to complete this topic Meningococcal Immunization (ACWY) Aged Out No longer eligible based on patient's age to complete this topic Pneumococcal Immunization Combined Aged Out No longer eligible based on patient's age to complete this topic Rotavirus Immunization Aged Out No lo nger eligible based on patient's age to complete this topic Care Teams Hospital Aide Relationship Specialty Start Date End Date Michel Lazcano DO [facility] [place] [address] PCP - General Internal Medicine 03/07/17
--- OUTSIDE RECORDS SUMMARY | 2024-07-17 14:21 | XMS_ITS | Referral Summary ---
Author Organization [facility] Address [address] [place] [address] Care Team Providers Care Clinical Field Specialist Name Role Phone Michel Lazcano DO Primary Care Provider [phone]- [phone] Allergies No known active allergies Medications metoprolol [...] on file Legal Sex Male 11:55 PM BLOW DOWN OPERATOR Gender Identity Not on file Sexual Orientation Not on file Last Filed Vital Signs Vital Sign Reading Time Taken Comments Blood Pressure 128/90 01/16/2024 3:32 PM BLOW DOWN OPERATOR Pulse 74 01/16/2024 3:32 PM BLOW DOWN OPERATOR Temperature 37.1 C (98.7 F) 01/16/2024 3:32 PM BLOW DOWN OPERATOR Respiratory Rate 16 01/16/2024 3:32 PM BLOW DOWN OPERATOR Oxygen Saturation 98% 01/16/2024 3:32 PM BLOW DOWN OPERATOR Inhaled Oxygen Concentration - - Weight 93 kg (205 lb) 01/16/2024 3:32 PM BLOW DOWN OPERATOR Height 175.3 cm (5' 9) 01/16/2024 3:32 PM BLOW DOWN OPERATOR Body Mass Index 30.27 01/16/2024 3:32 PM BLOW DOWN OPERATOR Plan of Treatment Not on [place] [place] [id number] [place] [id number] Care Teams Clinical Field Specialist Relationship Specialty Start Date End Date Michel Lazcano DO PCP - General 05/31/16
--- NOTE | 2024-07-17 17:07 | WPDPFTINT ---
PFT Procedure Performed PFT Procedure Performed Plethysmography (Lung Vol) Diffusing Cap (DLCO) Flow Vol Loop Spirometry w/o Bronchodil PFT Interpretation This is a pulmonary function test with spirometry, plethysmography and diffusing capacity. The test was performed and results interpreted in accordance with the 2019 and 2005 ATS/ERS Task Force guidelines respectively using the Global Lung Function Initiative-2012 reference equations. Patient demonstrated good effort and cooperation. Reproducibility criteria were met. The quality of the spirometry maneuver was Grade A. Findings: Spirometry: The contour the inspiratory and expiratory flow tracing are normal. The FVC is 3.95 L, 90% predicted. The FEV1 is 2.94 L, 87% predicted. The FEV1: FVC ratio 74%. Plethysmography: The total lung capacity is 5.79 L, 85% predicted. The functional residual capacity is 2.31 L, 66% predicted. The residual volume is 1.78 L, 80% predicted. Diffusing capacity: The diffusing capacity unadjusted for hemoglobin and carboxyhemoglobin is 23.6, 86% predicted. The diffusing capacity adjusted for alveolar volume is 4.18, 99% predicted. Impression: The spirometry is normal without evidence of an obstructive abnormality. The lung volumes are normal. The diffusing capacity is normal. There are no prior studies for comparison
== END 2024-07-17 14:00 | disposition home or self-care (01) ==
PROVIDERS: PCP Internal Medicine; Visit Provider Internal Medicine
DX: R06.09 Other forms of dyspnea (principal)
CPT/HCPCS: 93306; 94375; 94726; 94729

== ENCOUNTER 2024-08-10 07:30 | Outpatient (CLI) | payer OTHER, SELFPAY ==
--- NOTE | 2024-08-10 | EST_ITS ---
Patient Info Name: Jose Pryor Age: 64 years : 1960 Gender: Male Ht: 69 in Wt: 220 lbs BSA: 2.24 m2 Exam Date: 08/10/2024 8:10 AM Patient Status: O Admit Date: 08/10/2024 Exam Type: CA stress zohra w NM A regadenoson stress test was performed. Staff Referring Physician: Kurtis Grajeda Attending Provider: Kurtis Grajeda Exercise Technologist: Marisol Smith Exercise Physician: Dhruv Givens DO Summary 1. 1. Negative lexiscan stress test for ischemic ST changes by ECG criteria. 2. 2. Baseline hypertension. 3. 3. Nuclear scan to follow and will be reported separately. Please correlate with it. 4. 4. Patient informed of the above results. Protocol: Lexiscan Stress ECG Details Stage: REST Duration (min): 1 min : 19 sec HR (bpm): 52 SBP (mmHg): 152 DBP (mmHg): 87 Stage: REST Duration (min): 12 min : 10 sec HR (bpm): 56 SBP (mmHg): 152 DBP (mmHg): 87 Stage: STAGE 1 Duration (min): 0 min : 59 sec HR (bpm): 79 SBP (mmHg): 152 DBP (mmHg): 87 Stage: RECOVERY Duration (min): 1 min : 0 sec HR (bpm): 74 SBP (mmHg): 170 DBP (mmHg): 73 Stage: RECOVERY Duration (min): 2 min : 0 sec HR (bpm): 70 SBP (mmHg): 158 DBP (mmHg): 77 Stage: RECOVERY Duration (min): 3 min : 0 sec HR (bpm): 71 SBP (mmHg): 139 DBP (mmHg): 80 Stage: RECOVERY Duration (min): 4 min : 0 sec HR (bpm): 67 SBP (mmHg): 139 DBP (mmHg): 80 Stage: RECOVERY Duration (min): 5 min : 0 sec HR (bpm): 66 SBP (mmHg): 135 DBP (mmHg): 84 Stage: RECOVERY Duration (min): 6 min : 0 sec HR (bpm): 68 SBP (mmHg): 135 DBP (mmHg): 84 Stage: RECOVERY Duration (min): 6 min : 58 sec HR (bpm): 67 SBP (mmHg): 144 DBP (mmHg): 84 Rest HR: 56 bpm Peak HR: 80 bpm Rest Sys BP: 152 mmHg Peak Sys BP: 170 mmHg Max Pred HR: 158 bpm % Max Pred HR: 51 % Target HR: 134 bpm Max RPP: 13,600 bpm*mmHg Termination Reason: Completed protocol Cardiac Symptoms: Shortness of breath Total Time: 1 min : 0 sec Rest [place] BP: 87 mmHg Peak [place] BP: 73 mmHg Total Dose: 0.4 mg Resting ECG Sinus bradycardia. Stress ECG No ST changes. Arrhythmias None. Report Signatures
--- NOTE | ~2024-08-10 | NM_ITS ---
EXAMINATION: NM zohra stress w perfusion DATE: 08/10/2024 10:36 INDICATION: Dyspnea on exertion TECHNIQUE: Rest images were obtained following intravenous administration of 11.5 mCi Tc99m tetrofosm in (Myoview). The patient was infused intravenously with Lexiscan (Regadenoson). Then, 34.6 mCi Tc99m tetrofosmin (Myoview) was administered intravenously, and stress images were obtained. Data was gaye nstructed into short axis and horizontal and vertical long axis SPECT images. Gated SPECT images were also obtained. COMPARISON: None. FINDINGS: There is no definite reversible or fixed perfusion abnormality to suggest ischemia or infar ction. There is normal left ventricular chamber size, wall motion and ejection fraction. Left ventri cular ejection fraction measures >70%. IMPRESSION: 1. Normal myocardial perfusion at rest and during stress. 2. Left ventricular ejection fraction measuring >70%. Reviewed, dictated and finalized at location A.
== END 2024-08-10 07:31 | disposition home or self-care (01) ==
PROVIDERS: PCP Internal Medicine; Visit Provider Internal Medicine
DX: R06.09 Other forms of dyspnea (principal)
CPT/HCPCS: 78452; 93017; A9502; J2785